=== PATIENT | female | born 1975 | race Caucasian/White ===

== ENCOUNTER 2016-12-28 21:32 | Outpatient (CLI) | payer OTHER ==
[~2016-12-28] VITALS: Ht 154.9 cm; Wt 88.2 kg
[2016-12-28] MEDS ORDERED: PRENAT PO (21:46)
[2016-12-28 21:47] VITALS: BP 128/71; PULSE 97; RESP 19; Ht 154.9 cm; Wt 88.2 kg
[2016-12-28] MEDS ORDERED: ACETAMINOPHEN 500 MG TAB PO STA (22:29)
[2016-12-28 23:18] LABS: ADD UMIC YES; UR ASCORBIC ACID NEGATIVE (NEGATIVE); UR BACTERIA FEW /HPF (NONE SEEN); UR BILIRUBIN (Dip) NEGATIVE (NEGATIVE); UR BLOOD (Dip) NEGATIVE (NEGATIVE); UR BUDDING YEAST FEW /HPF (NONE SEEN); UR CLARITY CLOUDY (CLEAR); UR COLOR YELLOW (YELLOW); UR GLUCOSE (Dip) NEGATIVE (NEGATIVE); UR KETONES (Dip) NEGATIVE (NEGATIVE); UR LEUKOCYTE ESTERASE (Dip) 2+ Leu/ul (NEGATIVE); UR NITRITE (Dip) NEGATIVE (NEGATIVE); UR RBC 1 /HPF (0-5); UR SPECIFIC GRAVITY (Dip) 1.016 (1.003-1.030); UR SQUAMOUS EPITHELIAL CELL FEW /HPF (FEW); UR TOTAL PROTEIN (Dip) NEGATIVE (NEGATIVE); UR UROBILINOGEN (Dip) NEGATIVE (NEGATIVE)
[2016-12-29] MEDS ORDERED: TERBUTALINE 1 MG/ML INJ SC ONE (02:00)
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
== END 2016-12-29 03:35 | disposition home or self-care (01) ==
LOC: OBT 21:32 → L-D 21:33 → OBT 12-29 03:35
PROVIDERS: ATTEND Obstetrics & Gynecology
DX: O26.893 Other specified pregnancy related conditions, third trimester (principal); R10.30 Lower abdominal pain, unspecified; O62.9 Abnormality of forces of labor, unspecified; Z3A.33 33 weeks gestation of pregnancy
CPT/HCPCS: 76815; 76817; 81001; 96372; J3105; Z7500; Z7610; G0463

== ENCOUNTER 2017-02-08 04:47 | Inpatient (IN) | payer OTHER ==
[~2017-02-08] VITALS: Ht 157.5 cm; Wt 92.5 kg
[~2017-02-08 04:47] MED LIST: PRENAT PO
[2017-02-08] MEDS ORDERED: LACTATED RINGER'S 1,000 ML IV SCH (04:59)
[2017-02-08] MEDS ORDERED: CEFAZOLIN 2 GM/50 ML (PMX) 50 ML IV SCH (05:00)
[2017-02-08] MEDS ORDERED: CARBOPROST 250 MCG INJ IM PRN ×2 (05:00→11:30)
[2017-02-08] MEDS ORDERED: OXYTOCIN 30 UNITS/LR 500 ML IV PRN ×2 (05:00→11:30)
[2017-02-08] MEDS ORDERED: OXYTOCIN 30 UNITS/LR 500 ML IV SCH (05:00)
[2017-02-08] MEDS ORDERED: MISOPROSTOL 200 MCG TAB PR PRN ×2 (05:00→11:30)
[2017-02-08] MEDS ORDERED: METHYLERGONOVINE 0.2 MG INJ IM PRN ×2 (05:00→11:30)
[2017-02-08 05:52] LABS: BASOPHIL # 0.1 10^3/ul (0.0-0.1); BASOPHILS % 0.6 % (0.0-2.0); EOSINOPHILS # 0.1 10^3/ul (0.0-0.5); EOSINOPHILS % 1.5 % (0.0-7.0); HEMATOCRIT 38.4 % (37.0-47.0); HEMOGLOBIN 12.9 g/dl (12.0-16.0); LYMPHOCYTES # 1.7 10^3/ul (0.8-2.9); MEAN CORPUSCULAR HEMOGLOBIN 29.1 pg (29.0-33.0); MEAN CORPUSCULAR HGB CONC 33.6 g/dl (32.0-37.0); MEAN CORPUSCULAR VOLUME 86.7 fl (82.0-101.0); MEAN PLATELET VOLUME 10.6 fl (7.4-10.4); MONOCYTE # 0.8 10^3/ul (0.3-0.9); MONOCYTES % 9.5 % (0.0-11.0); NEUTROPHILS % 68.3 % (39.0-77.0); PLATELET COUNT 190 10^3/UL (140-415); RED BLOOD COUNT 4.43 10^6/ul (4.20-5.40); RED CELL DISTRIBUTION WIDTH 13.2 % (11.5-14.5); WHITE BLOOD COUNT 8.7 10^3/ul (4.8-10.8)
[2017-02-08 06:11] LABS: INR 0.95; PROTIME 12.7 Sec (12.2-14.2)
[2017-02-08 06:12] LABS: PARTIAL THROMBOPLASTIN TIME 25.2 Sec (25.0-35.0)
[2017-02-08 06:17] VITALS: Ht 157.5 cm; Wt 92.5 kg
[2017-02-08] MEDS ORDERED: CITRIC ACID/NA CITRATE 30 ML CUP ONE (07:18)
[2017-02-08] MEDS ORDERED: ONDANSETRON 4 MG INJ ONE (07:18)
[2017-02-08] MEDS ORDERED: ONDANSETRON 4 MG INJ IV STA (07:21)
[2017-02-08] MEDS ORDERED: CITRIC ACID/NA CITRATE 30 ML CUP PO ONE (07:30)
[2017-02-08] MEDS ORDERED: morphine SULFATE/PF (10 MG/10 ML) INJ ONE (07:46)
[2017-02-08] MEDS ORDERED: FENTAnyl 50 MCG/ML VIAL ONE (07:46)
[2017-02-08] MEDS ORDERED: METOCLOPRAMIDE 10 MG INJ ONE (07:46)
[2017-02-08] MEDS ORDERED: PHENYLephrine (100 MCG/ML) 5ML SYG ONE (07:47)
[2017-02-08] MEDS ORDERED: OXYTOCIN 10 UNIT INJ ONE (07:47)
--- NOTE | 2017-02-08 07:59 | HP ---
Date/Time of Note Date/Time of Note DATE: 02/08/17 TIME: 07:44 OB - History Hx of Present Free Text/Dictation This is a 41 years old female 4 para 3 history of 3 previous section with a EDC of February 13, 2017 to [facility] at 39 weeks and 2 days request for bilateral tubal ligation at the time of her section the failure rate ,risk of future pregnancies, increased risk of ectopic ,failure to conceive in the future has been explained to her also complication of the surgery including but not limited to bowel and bladder injury infection wound hematoma, all her questions answered she would like to proceed with the above mentioned surgery. Chief Complaint: 39 weeks 2 days , history of 3 previous , request for BTL Estimated Due Date: Feb 13, 2017 : 4 Para: 3 Care: Good Care Ultrasounds: Normal mid trimester US Obstetrical Complications: None Medical Complications: None Past Family/Social History * Past Medical, Surgical, Family and Obstetric Histories reviewed from chart. Rubella: immune RPR/VDRL: Negative GBS Status: Negative OB Admission Exam Physical Exam HEENT: WNL Heart: Rhythm Normal Lungs: Clear, Equal Abdomen: WNL Extremities: Normal Reflexes: Normal Cervical Dilatation: None Station: Ballotable Membranes: Intact Heart Rate: 130's Accelerations: Accelerations Present Varibility: Moderate Contractions on Admission: None Last 72 hours Lab Results CBC & BMP 02/08/17 05:20 OB Assessment/Plan Reason for admission: other (39 weeks 2 days of 3 previous section request for bilateral tubal ligation failure rate of tubal ligation increased risk of ectopic future failure to conceive to the complication of the surgery including but not limited to bowel and bladder injury infection and hematoma she is willing to proceed the operation) HANNAH ELMORE MD Feb 08, 2017 07:55
[2017-02-08] MEDS ORDERED: MIDAZOLAM 1 MG/ML 2 ML INJ ONE (08:32)
[2017-02-08] MEDS ORDERED: DEXAMETHASONE 4 MG/ML 1 ML INJ ONE (08:32)
[2017-02-08] MEDS ORDERED: KETOROLAC 15 MG INJ IV PRN (09:00)
[2017-02-08] MEDS ORDERED: MEPERIDINE 25 MG INJ IV PRN (09:00)
[2017-02-08] MEDS ORDERED: DIPHENHYDRAMINE 50 MG INJ IV PRN ×2 (09:00)
[2017-02-08] MEDS ORDERED: TRIMETHOBENZAMIDE 100 MG/ML VIAL IM PRN ×2 (09:00)
[2017-02-08] MEDS ORDERED: EPHEDrine SULFATE 50 MG/5 ML SYG IV PRN (09:00)
[2017-02-08] MEDS ORDERED: KETOROLAC 30 MG INJ IV PRN (09:00)
[2017-02-08] MEDS ORDERED: ALBUTEROL 0.083% (NEB) 2.5 MG/3 ML AMP HHN PRN (09:00)
[2017-02-08] MEDS ORDERED: morphine 4 MG/ML VIAL IV PRN (09:00)
[2017-02-08] MEDS ORDERED: FENTAnyl 50 MCG/ML VIAL IV PRN ×3 (09:00)
[2017-02-08] MEDS ORDERED: hydrALAzine 20 MG INJ IV PRN (09:00)
[2017-02-08] MEDS ORDERED: NALBUPHINE HCL (10 MG/1 ML) INJ IV PRN (09:00)
[2017-02-08] MEDS ORDERED: LABETALOL HCL 20MG INJ IV PRN (09:00)
[2017-02-08] MEDS ORDERED: HYDROmorphONE (0.2 MG/ML) 10ML SYG IV PRN ×3 (09:00)
[2017-02-08] MEDS ORDERED: ONDANSETRON 4 MG INJ IV PRN ×2 (09:00)
[2017-02-08] MEDS ORDERED: IPRATROPIUM (NEB) 0.5 MG/2.5 ML AMP HHN PRN (09:00)
[2017-02-08] MEDS ORDERED: ZOLPIDEM 5 MG TAB PO PRN (09:00)
[2017-02-08] MEDS ORDERED: NALOXONE (0.4 MG/ML) INJ IV PRN (09:00)
[2017-02-08] MEDS ORDERED: OXYCODONE/ACETAMINOPHEN (5/325) TAB PO PRN ×3 (09:00→11:30)
--- NOTE | 2017-02-08 09:45 | OPR ---
Operative Report Planned Procedure Free Text/Dictation 41 years old history of 3 previous section request for bilateral tubal ligation Procedure date Feb 08, 2017 Procedure(s) Repeat bilateral tubal ligation Performed by see signature line Assisting provider: SCOTT BURR MD Anesthesiologist: Sudhakar Acuna M.D. Pre-procedure diagnosis history of 3 previous request for bilateral tubal ligation Anesthesia Type: spinal Procedure Description Under satisfactory [final] anesthesia, the patient was prepped and draped and placed in a supine position, tilted to the left. Pfannenstiel incision was made , all the scar was removed incision carried through the subcutaneous tissue. Bleeders brought under control with electrocautery. Fascia incised to the length of the incision. Rectus muscles from the fascia, divided midline. Peritoneum exposed, entered through a transverse incision. Exploration of abdomen revealed gravid uterus with a large window 4.4 cm in the lower segment of the uterus the baby's head from the peritoneal cavity. Bladder flap was developed. Transverse incision was made in the lower segment of the uterus. Amniotic sac ruptured. [Clear amniotic fluid noted live baby girl was delivered from unengaged vertex from L OT position [] Nasal oropharyngeal suction was performed. baby handed to the team for immediate attention patient received 20 units of Pitocin placenta delivered manually intact. Uterine cavity cleaned with wet sponge and drainage established. Uterus closed in 2 layers using Monocryl #1 in continuous fashion bilateral tubal ligation performed by identifying the right fallopian tube fimbria and ampullar segment of the tube grasped by a [place] suture material used #0 plain catgut reinforced with the same suture material that segment of the tube excised and submitted to the pathology the same procedure performed for the opposite side. Peritoneal cavity irrigated with warm saline. Sponge, needle and instrument count reported to be correct. Abdominal peritoneum closed with [2-0 chromic catgut] continuously. Rectus muscle approximated with [0 chromic catgut fascia closed with [#1 PDS, subcutaneous tissue approximated with several interrupted 2-0 chromic catgut skin closed with NSORB estimated blood loss 600 cc, patient tolerated procedure well transferred to recovery room in a good condition Post-Procedure Findings: Live Baby girl 9 and 9 baby waited 8 lbs. 6 oz. Estimated blood loss: other (600 mL) Specimen(s): no Grafts/Implants: no Complication(s): no Pt Condition post procedure: stable Physician Certification I, the undersigned physician, hereby certify that I have discussed the procedure described in this consent form with this patient (or the patient's legal accounts receivable representative), including: * The risk and benefits of the procedure; * Any adverse reactions that may reasonably be expected to occur; * Any alternative efficacious methods of treatment which may be medically viable ; * The potential problems that may occur during recuperation; * Potential for blood transfusion and associated risks/benefits; and * Any research or economic interest I may have regarding this treatment. I further certify that the patient/legally responsible person was encouraged to ask question and that all questions were answered. HANNAH ELMORE MD Feb 08, 2017 09:43
[2017-02-08] MEDS: OXYTOCIN 30 UNITS/LR 500 ML IV SCH ×3 (11:16→22:17)
[2017-02-08 11:20] VITALS: BP 127/78; PULSE 105; RESP 20
[2017-02-08] MEDS ORDERED: HYDROCODONE/APAP (5/325) TAB PO PRN ×2 (11:30)
[2017-02-08] MEDS ORDERED: CEFAZOLIN 1 GM/50 ML (PMX) 50 ML IVPB SCH (11:30)
[2017-02-08] MEDS ORDERED: LANOLIN 7 GM TUBE TOP PRN (11:30)
[2017-02-08 11:50] VITALS: BP 128/76; PULSE 101; RESP 20
[2017-02-08] MEDS: IBUPROFEN 600 MG TAB PO SCH ×2 (12:00→16:51)
[2017-02-08 15:29] VITALS: BP 123/74; PULSE 104; RESP 20
[2017-02-08 20:00] VITALS: BP 122/85; PULSE 87; RESP 19
[2017-02-08] MEDS: SENNA/DOCUSATE NA (8.6MG/50MG) TAB PO SCH (21:00)
[2017-02-08] MEDS: morphine 2 MG INJ IV PRN (22:19)
[2017-02-09] VITALS: BP 128/83; PULSE 90; RESP 18
[2017-02-09] MEDS: OXYTOCIN 30 UNITS/LR 500 ML IV SCH ×5 (02:35→15:16)
[2017-02-09 04:00] VITALS: BP 116/68; PULSE 93; RESP 18
[2017-02-09] MEDS: IBUPROFEN 600 MG TAB PO SCH ×5 (06:00→23:46)
[2017-02-09] MEDS: morphine 2 MG INJ IV PRN (06:17)
[2017-02-09 08:00] VITALS: BP 120/75; PULSE 90; RESP 20
[2017-02-09] MEDS: SENNA/DOCUSATE NA (8.6MG/50MG) TAB PO SCH ×2 (09:18→20:45)
[2017-02-09] MEDS: OXYCODONE/ACETAMINOPHEN (5/325) TAB PO PRN ×2 (09:44→16:33)
[2017-02-09 10:22] LABS: BASOPHIL # 0.1 10^3/ul (0.0-0.1); BASOPHILS % 0.4 % (0.0-2.0); EOSINOPHILS # 0.1 10^3/ul (0.0-0.5); EOSINOPHILS % 0.7 % (0.0-7.0); HEMOGLOBIN 11.3 g/dl (12.0-16.0); LYMPHOCYTES # 1.1 10^3/ul (0.8-2.9); LYMPHOCYTES % 8.3 % (15.0-51.0); MEAN CORPUSCULAR HGB CONC 33.2 g/dl (32.0-37.0); MEAN CORPUSCULAR VOLUME 87.2 fl (82.0-101.0); MEAN PLATELET VOLUME 10.6 fl (7.4-10.4); MONOCYTE # 0.9 10^3/ul (0.3-0.9); MONOCYTES % 6.6 % (0.0-11.0); NEUTROPHIL # 11.4 10^3/ul (1.6-7.5); PLATELET COUNT 169 10^3/UL (140-415); RED CELL DISTRIBUTION WIDTH 13.4 % (11.5-14.5); WHITE BLOOD COUNT 13.7 10^3/ul (4.8-10.8)
[2017-02-09 16:30] VITALS: BP 121/69; PULSE 86; RESP 18
--- NOTE | 2017-02-09 16:33 | RADRPT ---
PROCEDURE: US Pelvis. CLINICAL INDICATION: pelvic pain TECHNIQUE: Multiple sonographic images of the pelvis were obtained utilizing a transabdominal tech nique. The images were reviewed on a PACS workstation. COMPARISON: US PELVIS 12/28/2016 FINDINGS: The uterus is enlarged in size with a heterogeneous appearance of the myometrium. The uterus measur es 21.8 x 10.1 x 14 cm. There is a large heterogeneous mass in the fundus of the uterus measuring 8. 6 x 6.6 x 6.4 cm, suspicious for a large fibroid. The endometrial stripe is heterogeneous in appearance and has the thickness of 21 mm. There is no in creased vascularity. The ovaries are normal in size and echogenicity. Normal Doppler flow is identified in both ovaries. The right ovary measures 4.7 x 2.8 x 3.4 cm. The left ovary measures 4.8 x 3.0 x 3.0 cm. No free fluid is present within the pelvis. RPTAT: AA IMPRESSION: Enlarged heterogeneous uterus with a large 8.6 cm probable fibroid in the fundus. Slightly thickened and heterogeneous endometrium with no increased vascularity. Normal ovaries. .Jah Johnson MD, MD Date Time Electronically viewed and signed by .Jah Johnson MD, MD on 02/09/2017 16:32 .S/
[2017-02-09 20:00] VITALS: BP 120/70; PULSE 89; RESP 19
[2017-02-10] MEDS: OXYTOCIN 30 UNITS/LR 500 ML IV SCH (03:16)
[2017-02-10 04:00] VITALS: BP 117/74; PULSE 89; RESP 17
[2017-02-10] MEDS: IBUPROFEN 600 MG TAB PO SCH ×3 (06:35→18:26)
[2017-02-10 07:50] VITALS: BP 117/70; PULSE 85; RESP 20
[2017-02-10] MEDS: OXYCODONE/ACETAMINOPHEN (5/325) TAB PO PRN ×3 (09:25→22:47)
[2017-02-10] MEDS: SENNA/DOCUSATE NA (8.6MG/50MG) TAB PO SCH ×2 (09:25→21:25)
--- NOTE | 2017-02-10 09:57 | QN ---
Documentation Comment Afebrile VSS Abdomen soft Incision dry, bowel sounds present, lochia normal, able to pass flatus no bowel movement, enema recommended, ambulation encouraged HANNAH ELMORE MD Feb 10, 2017 09:57
[2017-02-10] MEDS ORDERED: NA PHOSPHATE/BIPHOS 133 ML ENEMA PR ONE (10:00)
[2017-02-10 16:00] VITALS: BP 125/80; PULSE 80; RESP 18
[2017-02-10 19:50] VITALS: BP 121/66; PULSE 79; RESP 18
--- NOTE | 2017-02-10 20:40 | PN ---
Date/Time of Note Date/Time of Note DATE: 02/10/17 TIME: 20:35 OB Subjective Subjective Subjective January, Post C section day Doing Well Afebrile Ambulatory Chest Clear Breasts are soft , Nipples are intact Abdomen is soft Fundus is firm, but engaged, On ultrasound study a fibroid nodule of about 9 cm in diameter is reported Moderate amount of lochia Incision is clean ,No evidence of infection No calf tenderness Current Medications Medications (Trade) Dose Ordered Sig/[place] Route PRN Reason Start Time Stop Time Status Last Admin Dose Admin Lactated Ringer's 1,000 ml @ 125 mls/hr Q8H IV 02/08/17 04:59 02/08/17 11:24 DC 02/08/17 07:39 Cefazolin Sodium/ Dextrose 50 ml @ 100 mls/hr ONCE IV 02/08/17 05:00 02/08/17 11:24 DC Oxytocin/Lactated Ringer's 500 ml @ 125 mls/hr ONCE IV 02/08/17 05:00 02/08/17 11:24 DC 02/08/17 09:41 Oxytocin/Lactated Ringer's 500 ml @ 0 mls/hr ONCE PRN IV For Hemorrhage Management 02/08/17 05:00 02/08/17 11:24 DC Methylergonovine Maleate (Methergine) 0.2 mg ONCE PRN IM VAGINAL BLEEDING 02/08/17 05:00 02/08/17 11:24 DC Carboprost Tromethamine (Hemabate) 250 mcg ONCE PRN IM VAGINAL BLEEDING 02/08/17 05:00 02/08/17 11:24 DC Misoprostol (Cytotec) 1,000 mcg ONCE PRN PA VAGINAL BLEEDING 02/08/17 05:00 02/08/17 11:24 DC Citric Acid/ Sodium Citrate (Bicitra) 30 ml STK-MED ONCE .ROUTE 02/08/17 07:18 02/08/17 07:19 DC Ondansetron HCl (Zofran Inj) 4 mg STK-MED ONCE .ROUTE 02/08/17 07:18 02/08/17 07:19 DC Citric Acid/ Sodium Citrate (Bicitra) 30 ml ONCE ONCE PO 02/08/17 07:30 02/08/17 07:31 DC 02/08/17 07:32 Ondansetron HCl (Zofran Inj) 4 mg ONCE STAT IV 02/08/17 07:21 02/08/17 07:28 DC 02/08/17 07:32 Morphine Sulfate (Duramorph) 10 mg STK-MED ONCE .ROUTE 02/08/17 07:46 02/08/17 07:47 DC Fentanyl (Sublimaze) 100 mcg STK-MED ONCE .ROUTE 02/08/17 07:46 02/08/17 07:47 DC Metoclopramide HCl (Reglan) 10 mg STK-MED ONCE .ROUTE 02/08/17 07:46 02/08/17 07:47 DC Oxytocin (Oxytocin) 10 units STK-MED ONCE .ROUTE 02/08/17 07:47 02/08/17 07:48 DC Phenylephrine HCl (Adolfo-Synephrine Inj Syg) 500 mcg STK-MED ONCE .ROUTE 02/08/17 07:47 02/08/17 07:48 DC Midazolam HCl (Versed) 2 mg STK-MED ONCE .ROUTE 02/08/17 08:32 02/08/17 08:33 DC Dexamethasone (Decadron) 4 mg STK-MED ONCE .ROUTE 02/08/17 08:32 02/08/17 08:33 DC Naloxone HCl (Narcan) 0.1 mg Q2M PRN IV FOR RESP RATE 8 OR LESS 02/08/17 09:00 02/09/17 08:59 DC Ketorolac Tromethamine (Toradol) 30 mg Q6H PRN IV PAIN 02/08/17 09:00 02/09/17 08:59 DC Morphine Sulfate (morphine) 2 mg Q3H PRN IV PAIN LEVEL 1-5 02/08/17 09:00 02/09/17 08:59 DC 02/09/17 06:17 Morphine Sulfate (morphine) 4 mg Q3H PRN IV PAIN LEVEL 6-10 02/08/17 09:00 02/09/17 08:59 DC Diphenhydramine HCl (Benadryl) 25 mg Q6H PRN IV ITCHING 02/08/17 09:00 02/09/17 08:59 DC Nalbuphine HCl (Nubain) 5 mg ONCE PRN IV ITCHING 02/08/17 09:00 02/09/17 08:59 DC Ondansetron HCl (Zofran Inj) 4 mg Q6H PRN IV NAUSEA AND/OR VOMITING 02/08/17 09:00 02/09/17 08:59 DC Trimethobenzamide HCl (Tigan) 200 mg Q6H PRN IM NAUSEA AND/OR VOMITING 02/08/17 09:00 02/09/17 08:59 DC Zolpidem Tartrate (Ambien) 5 mg HS MAY REPEAT X 1 PRN PO INSOMNIA 02/08/17 09:00 02/09/17 08:59 DC Miscellaneous Information (* Miscellaneous Pharmacy Order) Duramorph: 0.2 mg Spi... GIVEN XX 02/08/17 09:00 02/08/17 11:24 DC Hydromorphone HCl (Dilaudid (Rec)) 0.2 mg PACU ORDER PRN IV MILD PAIN LEVEL 1-3 02/08/17 09:00 02/08/17 11:24 DC Hydromorphone HCl (Dilaudid (Rec)) 0.4 mg PACU ORDER PRN IV MODERATE PAIN LEVEL 4-6 02/08/17 09:00 02/08/17 11:24 DC Hydromorphone HCl (Dilaudid (Rec)) 0.6 mg PACU ORDER PRN IV SEVERE PAIN LEVEL 7-10 02/08/17 09:00 02/08/17 11:24 DC Fentanyl (Sublimaze) 25 mcg PACU ORDER PRN IV MILD PAIN LEVEL 1-3 02/08/17 09:00 02/08/17 11:24 DC Fentanyl (Sublimaze) 50 mcg PACU ODER PRN IV MODERATE PAIN LEVEL 4-6 02/08/17 09:00 02/08/17 11:24 DC Fentanyl (Sublimaze) 75 mcg PACU ORDER PRN IV SEVERE PAIN LEVEL 7-10 02/08/17 09:00 02/08/17 11:24 DC Ketorolac Tromethamine (Toradol) 15 mg PACU ORDER PRN IV FOR PAIN AFTER IV NARCOTIC MED 02/08/17 09:00 02/08/17 11:24 DC Oxycodone/ Acetaminophen (Percocet (5/ 325)) 1 tab PACU ORDER PRN PO PAIN LEVEL 1-5 02/08/17 09:00 02/08/17 11:24 DC Oxycodone/ Acetaminophen (Percocet (5/ 325)) 2 tab PACU ORDER PRN PO PAIN LEVEL 6-10 02/08/17 09:00 02/08/17 11:24 DC Ondansetron HCl (Zofran Inj) 4 mg PACU ORDER PRN IV NAUSEA AND/OR VOMITING 02/08/17 09:00 02/08/17 11:24 DC 02/08/17 09:34 Trimethobenzamide HCl (Tigan) 200 mg PACU ORDER PRN IM NAUSEA AND/OR VOMITING 02/08/17 09:00 02/08/17 11:24 DC 02/08/17 10:33 Labetalol HCl (Labetalol) 5 mg PACU ORDER PRN IV HIGH BLOOD PRESSURE 02/08/17 09:00 02/08/17 11:24 DC Hydralazine HCl (Apresoline) 5 mg PACU ORDER PRN IV HIGH BLOOD PRESSURE 02/08/17 09:00 02/08/17 11:24 DC Ephedrine Sulfate 5 mg PACU ORDER PRN IV MAP LESS THAN 60 02/08/17 09:00 02/08/17 11:24 DC Albuterol (Proventil 0.083% (Neb)) 2.5 mg PACU ORDER PRN HHN WHEEZING 02/08/17 09:00 02/08/17 11:24 DC Ipratropium [place] (Atrovent 0.02% (Neb)) 0.5 mg PACU ORDER PRN HHN WHEEZING 02/08/17 09:00 02/08/17 11:24 DC Meperidine HCl (Demerol) 25 mg PACU ORDER PRN IV POST-OP RIGORS 02/08/17 09:00 02/08/17 11:24 DC Diphenhydramine HCl (Benadryl) 25 mg PACU ORDER PRN IV PRURITUS 02/08/17 09:00 02/08/17 11:24 DC 02/08/17 11:05 Acetaminophen/ Hydrocodone Bitart ([place] (5/325)) 1 tab Q4H PRN PO PAIN LEVEL 4-6 02/08/17 11:30 Acetaminophen/ Hydrocodone Bitart ([place] (5/325)) 2 tab Q4H PRN PO PAIN LEVEL 7-10 02/08/17 11:30 Oxycodone/ Acetaminophen (Percocet (5/ 325)) 1 tab Q4H PRN PO PAIN LEVEL 4-6 02/08/17 11:30 Oxycodone/ Acetaminophen (Percocet (5/ 325)) 2 tab Q4H PRN PO PAIN LEVEL 7-10 02/08/17 11:30 02/10/17 15:56 Ibuprofen (Motrin) 600 mg Q6 PO 02/08/17 12:00 02/10/17 18:26 Simethicone (Mylicon) 160 mg Q8H PRN PO DISTENSION/GAS/BLOATING 02/08/17 11:30 Senna/Docusate Sodium (Senokot-S) 1 tab BID PO 02/08/17 21:00 02/10/17 09:25 Lanolin (Viv-T-Qununk) 1 applic BEDSIDE MEDICATION PRN TOP BEDSIDE FOR RK TO NIPPLES 02/08/17 11:30 02/09/17 20:45 Diphtheria/ Tetanus/Acell Pertussis 0.5 ml 0.5 ml ONCE ONCE IM* 02/11/17 09:00 02/11/17 09:01 Oxytocin/Lactated Ringer's 500 ml @ 0 mls/hr ONCE PRN IV For Hemorrhage Management 02/08/17 11:30 Methylergonovine Maleate (Methergine) 0.2 mg ONCE PRN IM VAGINAL BLEEDING 02/08/17 11:30 Carboprost Tromethamine (Hemabate) 250 mcg ONCE PRN IM VAGINAL BLEEDING 02/08/17 11:30 Misoprostol 1000 mcg 1,000 mcg ONCE PRN PA VAGINAL BLEEDING 02/08/17 11:30 Cefazolin Sodium 50 ml @ 100 mls/hr ONCE IVPB 02/08/17 11:30 02/08/17 11:59 DC 02/08/17 16:50 Oxytocin/Lactated Ringer's 500 ml @ 125 mls/hr Q4H IV 02/08/17 11:16 02/09/17 06:58 Sodium Biphosphate/ Sodium Phosphate (Fleet Enema) 133 ml ONCE ONCE PA 02/10/17 10:00 02/10/17 10:02 DC No ankle edema New born is doing well, Breast feeding SCOTT BURR MD Feb 10, 2017 20:40
[2017-02-11] MEDS: OXYTOCIN 30 UNITS/LR 500 ML IV SCH ×6 (00:16→07:16)
[2017-02-11] MEDS: IBUPROFEN 600 MG TAB PO SCH ×3 (00:34→12:17)
[2017-02-11 04:35] VITALS: BP 114/73; PULSE 77; RESP 18
[2017-02-11 08:00] VITALS: BP 118/74; PULSE 80; RESP 18
[2017-02-11] MEDS ORDERED: DIPHTH/TET/ACEL PERTUSS (ADULT) 0.5 ML VIAL IM* ONE (09:00)
[2017-02-11] MEDS: SENNA/DOCUSATE NA (8.6MG/50MG) TAB PO SCH (09:43)
[2017-02-11] MEDS: OXYCODONE/ACETAMINOPHEN (5/325) TAB PO PRN ×2 (09:44→14:00)
--- NOTE | 2017-02-11 12:57 | PD.PPDC ---
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
--- NOTE | 2017-02-11 13:02 | DS ---
Date/Time of Note Date/Time of Note DATE: 02/11/17 TIME: 12:59 Discharge Summary Admission/Discharge Info Admit Date/Time Feb 08, 2017 at 04:47 Discharge Date/Time February 11, 2017 at 1300 Discharge Diagnosis Post repeat date 3 Patient Condition: Good Procedures Repeat Hx of Present Illness 39 weeks history of previous Hospital Course Satisfactory uneventful Home Meds Reported Medications Multivit/Min/Fol Ac/Iron/Pren* ( S*) 1 Tab Tab, 1 TAB PO DAILY, TAB 12/28/16 Follow-up Plan Patient received post instructions recommended to make appointment to be seen at the clinic in 1 week Primary Care Provider Guicho Oliveira Time spent on discharge: < 30 minutes HANNAH ELMORE MD Feb 11, 2017 13:02
[2017-02-11] MEDS ORDERED: INFLUENZA VIRUS VACCINE 0.5 ML SYG IM* ONE (14:00)
[2017-02-12] MEDS ORDERED: INFLUENZA VIRUS VACCINE 0.5 ML SYG IM* ONE (09:00)
== END 2017-02-11 14:35 | disposition home or self-care (01) | DRG 766 ==
LOC: L-D 04:47 → PP1 11:24
PROVIDERS: ADMIT Obstetrics & Gynecology; ATTEND Obstetrics & Gynecology
PROC: 0UB70ZZ Excision of Bilateral Fallopian Tubes, Open Approach (ICD-10-PCS; 2017-02-08)
PROC: 10D00Z1 Extraction of Products of Conception, Low, Open Approach (ICD-10-PCS; principal; 2017-02-08 07:30)
DX: O34.211 Maternal care for low transverse scar from previous cesarean delivery (principal); Z30.2 Encounter for sterilization; Z37.0 Single live birth; Z3A.39 39 weeks gestation of pregnancy
CPT/HCPCS: 76856; 85025; 85610; 85730; 86592; 86850; 86900; 86901; 86920; 87340; 88302; 90686; 90715; 99464; J0690; J1100; J1200; J2250; J2270; J2274; J2370; J2405; J2590; J2765; J3010; J3250; J7120

== ENCOUNTER 2017-07-14 19:12 | Emergency (ER) | END 2017-07-14 20:29 | disposition home or self-care (01) ==

== ENCOUNTER 2017-12-18 11:55 | Emergency (ER) | END 2017-12-18 12:42 | disposition home or self-care (01) ==

== ENCOUNTER 2019-01-16 08:23 | Emergency (ER) | payer OTHER ==
[~2019-01-16] VITALS: Ht 154.9 cm; Wt 70.0 kg
[~2019-01-16 08:23] MED LIST changes: +CYCL10TA7 PO; +HYDR-4011 PO; +IBUP-1542 PO; +IBUP800T48 PO; +ONDA4TAB14 PO
[2019-01-16 08:26] VITALS: BP 125/90; PULSE 84; RESP 16; Ht 154.9 cm; Wt 70.0 kg
[2019-01-16] MEDS ORDERED: KETOROLAC 30 MG INJ IM STA (09:03)
== END 2019-01-16 09:59 | disposition home or self-care (01) ==
LOC: FTE 08:23
DX: M54.41 Lumbago with sciatica, right side (principal); G89.29 Other chronic pain
CPT/HCPCS: 81025; 96372; J1885; Z7502